=== PATIENT | female | born 1960 | race Caucasian/White ===

== ENCOUNTER 2020-03-24 11:58 | Outpatient (REF) | payer MEDICARE, OTHER, SELFPAY ==
[2020-03-24 14:25] LABS: Estimated Average Glucose 214 mg/dL; Hemoglobin A1c % 9.1 %
[2020-03-24 14:26] LABS: Alanine Aminotransferase 16 U/L (0-31); Aspartate Amino Transferase 14 U/L (5-31); Cholesterol 311 mg/dL; Glucose Fasting 203 mg/dL (60-99); HDL Cholesterol 53 mg/dL; LDL Cholesterol Calculated 233 mg/dl; Triglycerides 126 mg/dL
[2020-03-24 17:03] LABS: Creatinine Urine 33.31 mg/dL
== END 2020-03-24 11:59 | disposition home or self-care (01) ==
LOC: HO.HMGCLDS 11:58
PROVIDERS: PCP Family Medicine; Visit Provider Family Medicine
DX: E11.9 Type 2 diabetes mellitus without complications (principal); E78.00 Pure hypercholesterolemia, unspecified; Z79.899 Other long term (current) drug therapy
CPT/HCPCS: 36415; 80061; 82043; 82550; 82947; 83036; 84450; 84460

== ENCOUNTER 2020-05-19 07:53 | Outpatient (REF) | payer MEDICARE, OTHER, SELFPAY ==
[2020-05-19 11:33] LABS: Estimated Average Glucose 200 mg/dL; Hemoglobin A1c % 8.6 %
[2020-05-19 12:32] LABS: Cholesterol 298 mg/dL; Glucose Fasting 185 mg/dL (60-99); HDL Cholesterol 50 mg/dL; LDL Cholesterol Calculated 221 mg/dl; Triglycerides 136 mg/dL
== END 2020-05-19 07:54 | disposition home or self-care (01) ==
LOC: HO.HMGCLDS 07:53
PROVIDERS: PCP Internal Medicine; Visit Provider Internal Medicine
DX: E78.00 Pure hypercholesterolemia, unspecified (principal); E11.9 Type 2 diabetes mellitus without complications
CPT/HCPCS: 36415; 80061; 82947; 83036

== ENCOUNTER 2021-01-22 10:54 | Outpatient (REF) | payer MEDICARE, OTHER, SELFPAY ==
[2021-01-22 13:09] LABS: MANUAL DIFF FLAG NO
[2021-01-22 13:17] LABS: Estimated Average Glucose 206 mg/dL; Hemoglobin A1c % 8.8 %
[2021-01-22 13:21] LABS: Alanine Aminotransferase 13 U/L (0-31); Anion Gap 12 (12-20); Aspartate Amino Transferase 10 U/L (5-31); Blood Urea Nitrogen 7 mg/dL (9-16); Carbon Dioxide 30 mmol/L (22-29); Chloride 102 mmol/L (96-108); Cholesterol 316 mg/dL; Estimated Glomerular Filt Rate > 60; Glucose Fasting 176 mg/dL (60-99); HDL Cholesterol 53 mg/dL; LDL Cholesterol Calculated 239 mg/dl; Potassium 4.3 mmol/L (3.3-5.1); Sodium 140 mmol/L (135-145); Triglycerides 124 mg/dL
[2021-01-22 13:23] LABS: Basophils Percent Auto 0.4 % (0-2); Eosinophils Absolute Auto 0.2 X10*3/uL (0.0-0.4); Eosinophils Percent Auto 1.5 % (0-4); Hematocrit 43.6 % (37.0-47.0); Hemoglobin 14.5 g/dl (12.0-16.0); Imm Gran Abs Auto 0.07 X10*3/uL (0.00-0.03); Imm Gran Pct Auto 0.7 % (0.0-0.4); Lymphocytes Absolute Auto 2.6 X10*3/uL (1.2-4.9); Lymphocytes Percent Auto 24.1 % (20-40); Mean Corpuscular HGB Conc 33.3 g/dl (31.0-35.0); Mean Corpuscular Hemoglobin 30.5 pg (27.0-33.0); Mean Corpuscular Volume 91.8 fL (80.0-98.0); Monocytes Absolute Auto 0.8 X10*3/uL (0.1-1.2); Monocytes Percent Auto 7.8 % (2-11); Neutrophils Percent Auto 65.5 % (45-73); Platelet Count 367 X10*3/uL (160-400); Red Blood Count 4.75 X10*6/uL (4.20-5.50); Red Cell Distribution Width 12.8 % (11.0-16.0); White Blood Count 10.7 X10*3/uL (4.8-10.8)
== END 2021-01-22 10:55 | disposition home or self-care (01) ==
LOC: HO.HMGCLDS 10:54
PROVIDERS: Visit Provider Family Medicine
DX: E78.00 Pure hypercholesterolemia, unspecified (principal); E11.9 Type 2 diabetes mellitus without complications; D64.9 Anemia, unspecified; I10 Essential (primary) hypertension; Z79.899 Other long term (current) drug therapy
CPT/HCPCS: 36415; 80051; 80061; 82550; 82565; 82947; 83036; 84450; 84460; 84520; 85025

== ENCOUNTER 2021-08-12 13:07 | Outpatient (REF) | payer MEDICARE, OTHER, SELFPAY ==
--- NOTE | ~2021-08-12 | MR_ITS ---
EXAMINATION: MR BRAIN AND CERVICAL SPINE WITHOUT CONTRAST CLINICAL INFORMATION: Repeat. Reassess for disease progression. COMPARISON: Brain and cervical spine MRI 07/30/2019. TECHNIQUE: Multiplanar multisequence MRI of the brain and cervical spine was performed without contrast. FINDINGS: Brain: There is redemonstration of patchy and partly confluent demyelinating plaques involving the periventricular, deep, and juxtacortical cerebral white matter. The appearance is stable compared with 07/30/2019. No new plaques are seen. No definite plaques are seen within the posterior fossa structures. There is no acute infarct, hemorrhage, mass, or extra-axial fluid collection. The ventricles are normal in size and configuration without evidence of hydrocephalus. The orbital contents appear normal. Cervical spine: Demyelinating plaques are again demonstrated in the left lateral cord at C2-C3 and centrally at T2. No definite new demyelinating plaques are seen. There is mild cord volume loss/myelomalacia associated with the T2 plaque. There is no evidence of cord expansion. The cervical vertebral bodies maintain normal heights and alignment. There is mild disc height loss at C5-C6 and C6-C7. No bone marrow edema is seen. C2-C3 and C3-C4: No spinal canal or neural foraminal stenosis. C4-C5: Disc bulging with uncovertebral hypertrophy resulting in mild right neural foraminal stenosis. No spinal canal stenosis. C5-C6: Disc osteophyte complex with uncovertebral hypertrophy resulting in mild spinal canal stenosis and mild right more than left neural foraminal stenosis. C6-C7: Disc osteophyte complex asymmetric to the left with uncovertebral hypertrophy resulting in moderate spinal canal stenosis with ventral cord flattening and moderate left and mild right neural foraminal stenosis. C7-T1: No spinal canal or neural foraminal stenosis. MR/MR cervical spine wo con IMPRESSION: Brain: Stable appearance of mild supratentorial demyelinating plaques. No evidence of disease progression. No acute intracranial abnormality. Cervical spine: Redemonstration of demyelinating plaques at the C2-C3 and T2 levels. No evidence of new plaques. Stable multilevel degenerative spondylosis most advanced at C6-C7 where there is moderate spinal canal stenosis and moderate left neural foraminal stenosis.
== END 2021-08-12 13:08 | disposition home or self-care (01) ==
LOC: HO.MRI 13:07
PROVIDERS: Visit Provider Physician Assistant
DX: G35 Multiple sclerosis (principal)
CPT/HCPCS: 70551; 72141

== ENCOUNTER 2021-12-12 13:15 | Outpatient (REF) | payer MEDICARE, OTHER, SELFPAY ==
--- NOTE | ~2021-12-12 | MR_ITS ---
EXAMINATION: MR THORACIC SPINE WITHOUT AND WITH CONTRAST CLINICAL INFORMATION: Multiple sclerosis. Gait difficulty. COMPARISON: Thoracic spine MRI 03/04/2015. TECHNIQUE: Multiplanar MR imaging of the thoracic spine was performed without and with contrast. A total of 6 mL Gadavist was utilized for this examination. FINDINGS: Alignment is normal. Vertebral body heights are preserved. No acute bone marrow signal changes. There is disc desiccation at multiple levels without substantial loss of intervertebral disc height. Annular contours are normal and there is no canal or neuroforaminal compromise. No cord compression. Questionable intramedullary signal changes involving the dorsal thoracic cord at the level of T2 and the central to the dorsal cord at the level of T9. No abnormal intramedullary enhancement is associated on postcontrast imaging. Limited visualization of intrathoracic anatomy reveals no abnormal finding. Specifically no paraspinal soft tissue mass or collection. MR/MR thoracic spine wo/w con IMPRESSION: There are a few questionable intramedullary lesions involving the thoracic cord at the levels of T2 and T9 with no associated pathological enhancement or midline shift enhancement demonstrated on postcontrast imaging. Otherwise unremarkable thoracic spine MRI. No canal compromise or cord compression.
== END 2021-12-12 13:16 | disposition home or self-care (01) ==
LOC: HO.MRI 13:15
PROVIDERS: Visit Provider Physician Assistant
DX: G35 Multiple sclerosis (principal)
CPT/HCPCS: 72157; A9585

== ENCOUNTER 2022-09-29 13:41 | Outpatient (REF) | payer MEDICARE, OTHER, SELFPAY ==
--- NOTE | ~2022-09-29 | MR_ITS ---
EXAMINATION: MR BRAIN WITHOUT AND WITH CONTRAST CLINICAL INFORMATION: Follow up MS. COMPARISON: 08/12/2021 MRI. TECHNIQUE: Multiplanar, multisequence MRI of the brain was obtained before and after the intravenous administration of 6 mL Gadavist. FINDINGS: Brain Volume: Within normal limits within the limitations of qualitative assessment, stable in appearance. 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 Brain and Meninges: DWI sequence demonstrates no restricted diffusion to suggest acute or subacute cerebral ischemia or active demyelination. Redemonstrated are numerous foci of patchy and small more well-defined the zones of FLAIR/T2 signal hyperintensity in the subcortical and deeper periventricular white matter of both cerebral hemispheres, largely stable in appearance in the overall distribution and appearance. There is a stable juxta ventricular region in the right anterior temporal lobe, unchanged. Following contrast administration, there is no abnormal enhancement to suggest active demyelination. The lesion in the anterior right temporal lobe white matter is T1 hypointense, consistent with chronic demyelination, unchanged. No extra-axial fluid collections, intracranial mass lesions or pathologic intracranial enhancement are identified. Ventricles and Subarachnoid Spaces: The ventricular system and subarachnoid spaces are within normal range; there is no hydrocephalus. Orbital Structures: The visualized orbital structures are grossly unremarkable within the limitations of the study. Vascular: Signal voids are noted in the visualized major intracranial vessels. Osseous Structures, Sinuses/Mastoids, Extracranial Soft Tissues: Unremarkable MR/MR head/brain wo/w con IMPRESSION: 1. Stable nonenhancing white matter lesions in both cerebral hemispheres, with a stable lesion in the anterior right temporal lobe white matter, consistent with chronic demyelination. No abnormal enhancement to suggest active demyelination and no definite new lesions are seen. 2. 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 3. No acute intracranial process.
[2022-09-29] MEDS: gadobutroL 7.5 ML VIAL IVPUSH (14:40)
== END 2022-09-29 13:42 | disposition home or self-care (01) ==
LOC: HO.MRI 13:41
PROVIDERS: PCP Family Medicine; Visit Provider Student in an Organized Health Care Education/Training Program
DX: G35 Multiple sclerosis (principal)
CPT/HCPCS: 70553; A9585

== ENCOUNTER 2022-12-25 12:00 | Outpatient (REF) | payer MEDICARE, OTHER, SELFPAY ==
[2022-12-25 13:13] LABS: MANUAL DIFF FLAG NO
[2022-12-25 13:27] LABS: Basophils Absolute Auto 0.1 X10*3/uL (0.0-0.2); Basophils Percent Auto 0.5 % (0-2); Eosinophils Absolute Auto 0.1 X10*3/uL (0.0-0.4); Eosinophils Percent Auto 1.1 % (0-4); Hematocrit 41.8 % (37.0-47.0); Hemoglobin 13.8 g/dl (12.0-16.0); Imm Gran Abs Auto 0.06 X10*3/uL (0.00-0.03); Imm Gran Pct Auto 0.6 % (0.0-0.4); Lymphocytes Absolute Auto 3.2 X10*3/uL (1.2-4.9); Lymphocytes Percent Auto 30.3 % (20-40); Mean Corpuscular Hemoglobin 30.2 pg (27.0-33.0); Mean Corpuscular Volume 91.5 fL (80.0-98.0); Mean Platelet Volume 9.8 fL (9.4-12.3); Monocytes Absolute Auto 0.9 X10*3/uL (0.1-1.2); Monocytes Percent Auto 8.8 % (2-11); Neutrophils Absolute Auto 6.1 x10*3/uL (2.0-8.3); Neutrophils Percent Auto 58.7 % (45-73); Platelet Count 331 X10*3/uL (160-400); Red Blood Count 4.57 X10*6/uL (4.20-5.50); Red Cell Distribution Width 13.2 % (11.0-16.0); White Blood Count 10.5 X10*3/uL (4.8-10.8)
[2022-12-25 13:42] LABS: Estimated Average Glucose 134 mg/dL; Hemoglobin A1c % 6.3 % (<6.0)
[2022-12-25 14:38] LABS: Cholesterol 195 mg/dL (<200); Estimated Glomerular Filt Rate > 60; Free T4 (Free Thyroxine) 0.87 ng/dL (0.71-1.85); Glucose Fasting 111 mg/dL (60-99); HDL Cholesterol 63 mg/dL (>40); LDL Cholesterol Calculated 115 mg/dL (<100); Triglycerides 89 mg/dL (<150); Vitamin D 25-OH Total 46.3 ng/mL (>30)
== END 2022-12-25 12:01 | disposition home or self-care (01) ==
LOC: HO.HMGCLDS 12:00
PROVIDERS: PCP Family Medicine; Visit Provider Family Medicine
DX: E78.00 Pure hypercholesterolemia, unspecified (principal); E11.9 Type 2 diabetes mellitus without complications; G62.9 Polyneuropathy, unspecified; R00.0 Tachycardia, unspecified; M81.0 Age-related osteoporosis without current pathological fracture
CPT/HCPCS: 36415; 80061; 82306; 82565; 82947; 83036; 84439; 85025

== ENCOUNTER 2023-03-23 10:56 | Outpatient (AMB) | payer MEDICARE, OTHER, SELFPAY ==
--- NOTE | 2023-03-23 09:34 | MHC.OFFVIS ---
Intake Intake Visit Reasons: LDCT SD HPI HPI Comments History of Present Illness Details Natasha is a pleasant 63 year old female, current smoker with a 21 PYH. Patient has been smoking since age 21 for 42 years at 1/2 ppd. Denies marijuana use. Denies exposure to chemicals or substances like asbestos. Denies second hand smoke exposure. Denies known family history of lung cancer. Reports h/o left breast cancer s/p lumpectomy, chemo/radiation [address] in last year. Denies recent travel outside the [place]. Admits testing positive for COVID. Admits receiving COVID Vaccine x 2 Denies fever, chills, chest pain, new cough, hemoptysis or unintentional weight loss. Lung Cancer Screening Questionnaire reviewed with patient by provider. Shared Decision Making Completed. Discussed in detail with patient, the risk versus benefit of LDCT screening. Patient in agreement of proceeding with scan. Assessment & Plan Assessment & Plan (1) Nicotine dependence, cigarettes, uncomplicated: Code(s): F17.210 - Nicotine dependence, cigarettes, uncomplicated Plan Shared decision-making visit completed today in office. This patient meets criteria for LDCT for lung cancer screening purposes and is asymptomatic. Offered smoking cessation. Patient has been scheduled for a low dose chest CT for screening purposes at [facility]. We discussed how the results will be obtained depending on CT findings. RADS 1 and RADS 2 will receive a letter with results and will follow up for annual LDCT. Patient informed they will be contacted at later date to schedule upcoming LDCT scan. RADS 3 and RADS 4 will receive a telephone call, or an office visit after reviewing case at our Lung Cancer Conference to determine when the next LDCT will be scheduled or further interventions that may be needed. Discussed importance of screening program and compliance with yearly LDCT scan as scheduled. Risks, benefits, and alternatives were discussed in detail and patient agrees to proceed. Risks discussed include but are not limited to: radiation exposure and possibility of additional intervention for benign disease. Benefits include detection of lung cancer at an early stage. A copy of today's visit and LDCT results will be sent to patient's PCP. Incidental findings on LDCT are PCP's responsibility. If there are incidental findings, our office will ensure that PCP office is aware of these findings. All questions were answered and patient is in agreement of plan. Coding Level of Care Code Lung Cancer Screening G0296 Diagnoses Nicotine dependence, cigarettes, uncomplicated F17.210
== END 2023-03-23 15:08 | disposition home or self-care (01) ==
PROVIDERS: PCP Family Medicine; Referring Provider Family Medicine; Visit Provider Nurse Practitioner Family
DX: F17.210 Nicotine dependence, cigarettes, uncomplicated (principal)
CPT/HCPCS: G0296

== ENCOUNTER 2023-03-23 11:19 | Outpatient (REF) | payer MEDICARE, OTHER, SELFPAY ==
--- NOTE | ~2023-03-23 | CT_ITS ---
EXAMINATION: CT CHEST SCREENING CLINICAL INFORMATION: Current smoker, 1 pack per day, 42 pack years. COMPARISON: Chest radiograph 11/21/2012. TECHNIQUE: Multidetector volumetric CT imaging of the chest is performed without contrast using low dose technique. Additional 2D coronal and sagittal reformatted images and axial 3D maximum intensity projection (MIP) images are generated on the CT workstation. This CT examination was performed using dose optimization techniques as appropriate, variously including the following: *Automated exposure control *Adjustment of mA and/or kV according to patient size (this includes techniques or standardized protocols for targeted exams where dose is matched to indication/reason for exam; i.e. extremities or head) *Use of iterative reconstruction technique DLP: 44 mGy-cm FINDINGS: LUNGS: Mild emphysematous changes are seen. Few scattered micronodules are present, none larger than 3 mm (see malone images). The lungs are otherwise clear with no evidence of inflammation or worrisome nodules. MEDIASTINUM: The mediastinum is normal. CORONARY ARTERY CALCIFICATION: None visualized on this study. PLEURA: There is no pleural effusion. No pleural mass or thickening. AXILLA: No lymphadenopathy. UPPER ABDOMEN: Unremarkable. OSSEOUS STRUCTURES: Unremarkable. CT/CT lung screening IMPRESSION: Unremarkable examination. ASSESSMENT: Lung-RADS category 2: Benign. RECOMMENDATION: Routine annual low-dose CT screening in 12 months.
== END 2023-03-23 11:20 | disposition home or self-care (01) ==
LOC: HO.CT 11:19
PROVIDERS: PCP Family Medicine; Visit Provider Nurse Practitioner Family
DX: F17.210 Nicotine dependence, cigarettes, uncomplicated (principal)
CPT/HCPCS: 71271; G0296

== ENCOUNTER 2023-10-02 10:26 | Outpatient (REF) | payer MEDICARE, OTHER, SELFPAY ==
--- NOTE | ~2023-10-02 | MR_ITS ---
EXAMINATION: MR CERVICAL SPINE WITHOUT CONTRAST CLINICAL INFORMATION: MS, follow-up examination. 63-year-old female. COMPARISON: MRI cervical spine 02/28/2019. TECHNIQUE: MRI of the cervical spine was obtained using standard sequences without IV gadolinium. Examination was performed on the new [facility] [place] [place] 1.5 Sakina Siemens unit. Please note, due to [facility] contractual, systems, and staffing issues, an [facility] [place] [place] radiologist was not available for review and dictation of this case until 10/19/2023. FINDINGS: -Demyelinating plaques are again seen within the cervical cord and left lateral column at C2-3 (series 8, image 5), and centrally spanning the T2 vertebral body with mild associated cord thinning. These findings are both stable. -There is a central posterior column lesion at the mid C3 vertebral body, likely not previously resolved due to current markedly improved magna and spatial resolution. (series 8, image 7). -Holocord lesion present at the mid C4 level (series 8, image 11), likely also not previously resolved. -Right lateral column lesion seen superior endplate of C7 (series 8, image 22), likely also not previously resolved. -Holocord lesion present at the inferior endplate of C7 (series 8, image 25), ), and also at the superior endplate of T1 (series 8, image 27) both likely also not previously resolved. -Subtle lesion seen in the central cord at the superior endplate of C5, not definitely appreciated previously, likely due to improved magnet and improved spatial resolution. -In addition, a left mid pontine lesion is present, not definitively seen previously and not well appreciated on the concurrent brain MRI. In retrospect this was likely present on the prior exam although less conspicuous due to technical differences. -No bone marrow edema is evident. No paraspinous or paravertebral edema or soft tissue abnormality. AXIAL DISC SPACE IMAGING: At C4-5, there is a small central disc protrusion present without significant central canal narrowing. Minimal facet degeneration. Mild right foraminal stenosis. No change. At C5-6, there is a diffuse disc osteophytic ridge complex with bilateral uncinate hypertrophy, resulting in mild central canal stenosis and moderate to severe bilateral neural foraminal stenosis. Minimal facet degeneration. Normal foraminal stenosis appears mildly worsened. At C6-7 there is a shallow diffuse disc bulge with a superimposed left paracentral and lateral protrusion of disc material, which contacts and minimally indents upon the left ventral aspect of the cord, resulting in moderate central canal stenosis and left lateral recess stenosis. There is a thin sliver of CSF preserved posterior to the cord. No cord signal abnormality at the disc level. There is mild left greater than right neural foraminal narrowing. There is mild facet degeneration. No change. At C7-T1, and T1-T4, no central canal or neural foraminal narrowing is present at these levels. MR/MR cervical spine wo con IMPRESSION: 1. Aside from mild worsening of neural foraminal stenosis at C5-6, no change in the spondylosis of the cervical spine, with disc herniation resulting in indentation on the left ventral aspect of the cord at C6-7. 2. There are several demyelinating lesions within the cord not previously seen, which is more likely artifact or from far improved spatial resolution from improved MRI magnet, then true new cord lesions. Stable mild cord thinning spanning the T2 vertebral body. 3. Left mid pontine T2 hyperintense small lesion is present, not definitively previously seen, and not definitively seen on the brain MRI of same day. This could potentially be artifact. Electronically signed by: Jimbo Rivera MD 10/19/2023 06:02 PM EDT
--- NOTE | ~2023-10-02 | MR_ITS ---
EXAMINATION: MR BRAIN WITHOUT CONTRAST CLINICAL INFORMATION: MS, follow-up COMPARISON: 09/29/2022. 12/12/2021 MRI brain. Please note, due to [facility] contractual, systems, and staffing issues, an [facility] radiologist was not available for review and dictation of this case until 10/19/2023. TECHNIQUE: MRI of the brain was obtained using routine sequences without IV gadolinium. FINDINGS: -There is no diffusion restriction identified. There is no evidence of intracranial hemorrhage, acute infarction, mass effect, edema, or extra-axial fluid collection. There is no midline shift. -Ventricles, sulci, and cisterns are normal in size configuration for patient age. There is a cavum vergae. -Mild callosal thinning is present with diffuse hyperintensity at the callosal septal interface, similar to the prior exam. -Numerous punctate and minimally confluent predominantly periventricular as well as subcortical and hemispheric deep white matter T2 hyperintense foci are present, in keeping with the known diagnosis of multiple sclerosis. There are pericallosal lesions and a few pericallosal marginal lesions. There are greater than 20 punctate lesions. There are no infratentorial or brainstem lesions. -Overall, when compared with the most recent prior examination one year prior, no significant progression of disease allowing for noncontrast examination. No definite new lesions are appreciated. -Largest lesion is in the superior right periatrial white matter, unchanged, measuring an estimated 1.1 x 1.6 cm in axial plane. -Lesion in the right anterior temporal lobe is again noted to be T1 hypointense, consistent with a chronic lesion. This is unchanged. -Major flow voids are preserved within the skull base. -Midline structures are normal in appearance otherwise, with normal pituitary and normally located cerebellar tonsils. -8 mm pineal cyst is stable and unchanged when measured similarly. -Globes, orbital contents, and optic nerve sheath complexes are normal in signal and appearance. -Paranasal sinuses, mastoids, and tympanic cavities are aerated normally. -There is no extracranial soft tissue abnormality. -There are no suspicious bone marrow signal foci. MR/MR head/brain wo con IMPRESSION: -No evidence of acute intracranial hemorrhage, acute infarction, mass effect, or edema. -Stable findings of demyelinating disease without significant change or new lesions when compared with 09/29/2022. -Stable 8 mm pineal cyst, consistent with benign entity. Electronically signed by: Jimbo Rivera MD 10/19/2023 05:37 PM EDT RP
== END 2023-10-02 10:27 | disposition home or self-care (01) ==
LOC: HO.MRI 10:26
PROVIDERS: PCP Family Medicine; Visit Provider Physician Assistant
DX: G35 Multiple sclerosis (principal)
CPT/HCPCS: 70551; 72141

== ENCOUNTER → 2023-10-02 10:55 | Outpatient (BNV) | payer MEDICARE, OTHER, SELFPAY | PROVIDERS: PCP Family Medicine; Visit Provider Radiology Diagnostic Radiology | DX: G35 Multiple sclerosis (principal) | CPT/HCPCS: 70551; 72141 ==

== ENCOUNTER 2024-04-07 09:52 | Outpatient (REF) | payer MEDICARE, OTHER, SELFPAY ==
--- OUTSIDE RECORDS SUMMARY | 2024-04-07 11:06 | XMS_ITS ---
Author Name [facility] Organization Unknown History of Medication Use Medication Directions Dispensed Refills Start Date End Date Stat us ciprofloxacin (CIPRO) 500 mg tablet Take by mouth 2 (two) times a day. active escitalopram (LEXAPRO) 20 mg tablet Take 1 tablet (20 mg total) by mouth daily. 05/05/2019 active atorvastatin (LIPITOR) 40 mg tablet Take 1 tablet (40 mg total) by mouth daily. 05/05/2019 active glatiramer (Copaxone) 40 mg/mL injection INJECT 1 ML (40 MG TOTAL) UNDER THE SKIN THREE TIMES A WEEK 03/15/2022 active cyanocobalamin (VITAMIN B-12) 1,000 mcg tablet TAKE 1 TABLET BY MOUTH EVERY DAY 11/21/2022 active Problems Problem Status Onset Date Problem Type Date of Resoluti on Source Depression active 2019-07-19 Problem[address] [facility] RAN DM (diabetes mellitus) active 2019-07-19 ProblemAct [facility] HLD (hyperlipidemia) active 2019-07-19 ProblemAct [facility]
--- OUTSIDE RECORDS SUMMARY | 2024-04-07 11:07 | XMS_ITS | Clinical Summary ---
Author Organization 175 [facility] Address [address] [place] [phone] Phone Care Team Providers Care Dean Of Faculty Name Role Phone Abel Severino MD Primary Care Provider [phone] Allergies Active Allergy Reactions Criticality Noted Date Comments Aspirin Nausea And Vomiting 06/23/2014 Bupropion Palpitations Low 06/23/2014 Codeine Nausea And Vomiting 06/23/2014 Erythromycin 08/01/2023 Penicillins Nausea And Vomiting 06/23/2014 Medications atorvastatin (LIPITOR) 40 mg tablet Take 1 tablet (40 mg total) by mouth daily. 0 Active cholecalciferol (VITAMIN D-3) 125 mcg (5,000 unit) capsule Take by mouth. Active cyanocobalamin (VITAMIN B-12) 1,000 mcg tablet TAKE 1 TABLET BY MOUTH EVERY DAY 3 Active ergocalciferol (VITAMIN D-2) 1,250 mcg (50,000 unit) capsule Take 1 capsule (50,000 Units total) by mouth once a week. 3 Active escitalopram (LEXAPRO) 20 mg tablet Take 1 tablet (20 mg total) by mouth daily. 0 Active glatiramer (Copaxone) 40 mg/mL injection INJECT 1 ML (40 MG TOTAL) UNDER THE SKIN THREE TIMES A WEEK 3 Active meclizine (ANTIVERT) 25 mg tablet 1/2 - 1 po up to bid PRN vertigo 2 Active metFORMIN XR (GLUCOPHAGE-XR) 500 mg 24 hr tablet Take 1 tablet (500 mg total) by mouth every night at bedtime. 0 Active Copaxone 40 mg/mL injectionIndica tions:MS (multiple sclerosis) ([facility]) Inject 1 mL (40 mg total) under the skin 3 (three) times a week. 12 mL 5 03/31/2024 1:50 PM EST 4 Active amphetamine-dex troamphetamine (ADDERALL) 20 mg tablet Take 1 tablet (20 mg total) by mouth 2 (two) times a day. Max Daily Amount: 40 mg 60 each 5 04/27/19 25 Active amphetamine-dex troamphetamine (ADDERALL) 20 mg tablet Take 1 tablet (20 mg total) by mouth 2 (two) times a day. Max Daily Amount: 40 mg 60 each 5 03/27/19 25 Discontinu ed(Reorder ) Active Problems Problem Noted Date Diagnosed Date Depression 07/19/2019 DM (diabetes mellitus) 07/19/2019 HLD (hyperlipidemia) 07/19/2019 Encounters Date Type Department Care Team Description 01/14/2024 1:00 PM EST Office Visit [phone] Shannon Kay PA MS (multiple sclerosis) ([facility]) (Primary Dx) from Last 3 Months Surgical History Surgery Date Site/Laterality Comments TOTAL HIP ARTHROPLASTY Left PROCEDURE:REPLACEMENT TOTAL HIP W/ RESURFACING IMPLANTS TONSILLECTOMY PROCEDURE:TONSILLECTOMY HYSTERECTOMY PROCEDURE:HYSTERECTOMY BREAST LUMPECTOMY Left PROCEDURE:BREAST LUMPECTOMY Medical History Medical History Date Comments MS (multiple sclerosis) (CMS/HCC) DX:MS (multiple sclerosis) ([facility]) Breast cancer ([facility]) DX:Breas t cancer ([facility]) Family History Medical History Relation Name Comments Heart disease Father Hypertension Father Breast cancer Maternal Grandmother Hypertension Mother Breast cancer Paternal Grandmother Multiple sclerosis Neg Hx Relation Name Status Comments Father Maternal Grandmother Mother Paternal Grandmother Social History Tobacco Use Types Packs/Day Years Used Date Smoking Tobacco: Every Day Smokeless Tobacco: Never Tobacco Cessation:Ready to Q uit: Not Asked; Counseling Given: Not Answered Alcohol Use Standard Drinks/Week Comments Yes 0 (1 standard drink = 0.6 oz pur e alcohol) Comments Unknown Sex and Gender Information Value Date Recorded Sex Assigned at Not on file Legal Sex Female 11:10 PM EST Gender Identity Not on file Sexual Orientation Not on file Obstetrics History Last Filed Vital Signs Vital Sign Reading Time Taken Comments Blood Pressure 119/70 01/14/2024 1:22 PM EST Pulse 94 01/14/2024 1:22 PM EST Temperature 36 ??C (96.8 ??F) 01/14/2024 1:22 PM EST Respiratory Rate - - Oxygen Saturation 98% 01/14/2024 1:22 PM EST Inhaled Oxygen Concentration - - Weight 64.9 kg (143 lb) 01/14/2024 1:22 PM EST Height 175.3 cm (5' 9 ) 01/14/2024 1:22 PM EST Body Mass Index 21.12 01/14/2024 1:22 PM EST Plan of Treatment Upcoming Encounters Date Type Department Care Team (Late st Contact Info) Description 07/14/2024 1:00 PM EDT Office Visit [facility] [address] [facility] [address] [phone] Dell Obregon MD [address] [facility] [address] [phone] Health Maintenance Due Date Last Done Comments Breast Cancer Screening 1961 Diabetes: Annual GFR (Glomerular Filtration Rate) 1961 Diabetes: Annual Foot Exam 1971 Diabetes: Annual Retina Eye Exam 1971 DTaP,Tdap,and Td Vaccines (1 - Tdap) 02/10/1980 Pneumococcal Vaccine: 50+ Years (1 of 2 - PCV) 02/10/1980 Pneumococcal Vaccine: Pediatrics (0 to 5 Years) and At-Risk Patients (6 to 64 Years) (1 of 2 - PCV) 02/10/1980 Zoster Vaccines (1 of 2) 02/10/1980 Cervical Cancer Screening: P ap Smear 1982 COVID-19 Vaccine (3 - Pfizer risk series) 06/23/2020 05/26/2020, 05/03/2020 Cholesterol Screening (Lipid Panel) 01/14/2022 Colorectal Cancer Screening: Colonoscopy 01/14/2022 Depression Screening 01/14/2022 HIV Screening 01/14/2022 Hepatitis C Screening 01/14/2022 Social Influencers of Health Screening 01/14/2022 Diabetes: Annual Urine Albumin-Creatinine Ratio (uACR) 02/03/2022 Diabetes: Blood Sugar Contro l Test (HGBA1C) 02/03/2022 Medicare Annual Wellness Visit 10/03/2023 10/02/2022 Influenza Vaccine (#1) 2023 4, 12/15/2012 RSV Immunization Patients 60 + Years Old (1 - 1-dose 75+ series) 02/10/2036 HIB Vaccines Aged Out No longer eligi ble based on patient's age to complete this topic HPV Vaccines Aged Out No longer eligi ble based on patient's age to complete this topic Hepatitis A Vaccines Aged Out No long er eligible based on patient's age to complete this topic Hepatitis B Vaccines Aged Out No long er eligible based on patient's age to complete this topic IPV Vaccines Aged Out No longer eligi ble based on patient's age to complete this topic MMR Vaccines Aged Out No longer eligi ble based on patient's age to complete this topic Meningococcal ACWY Vaccine Aged Out N o longer eligible based on patient's age to complete this topic Meningococcal B Vacine Aged Out No lo nger eligible based on patient's age to complete this topic RSV Immunization Patients Under 20 months Aged Out No longer eligible b ased on patient's age to complete this topic Varicella Vaccines Aged Out No longer eligible based on patient's age to complete this topic Procedures Procedure Name Priority Date/Time Associated Diagnosis Comments EXTERNAL MRI REPORT 02/08/2024 from Last 3 Months Results * External MRI Report (02/08/2024) Anatomical Region Laterality Modality Magnetic Resonan ce us Provider [facility] IMG MRI PROCEDURES Final Result from Last 3 Months Insurance MEDICARE [facility] Care Teams Dean Of Faculty Relationship Specialty Start Date End Date Abel Severino MD [address] [place] [address] [place] [address] PCP - General Internal Medicine 12/23/20
--- OUTSIDE RECORDS SUMMARY | 2024-04-07 11:07 | XMS_ITS | Clinical Summary ---
Author Organization [facility] Address [address] [place] [address] Care Team Providers Care Scale Balancer Name Role Phone Abel Severino MD Primary Care Provider [phone] Allergies Active Allergy Reactions Criticality Noted Date Comments Aspirin Nausea And Vomiting 06/23/2014 Bupropion Palpitations Low 06/23/2014 Codeine Nausea And Vomiting 06/23/2014 Erythromycin 01/22/2023 Penicillins Nausea And Vomiting 06/23/2014 Medications Medication Sig Dispensed Refills Start Date End Date Status atorvastatin (LIPITOR) tablet 40 mg Take 1 tablet (40 mg total) by mouth daily. 0 05/05/2019 Active escitalopram (LEXAPRO) 20 MG tablet Take 1 tablet (20 mg total) by mouth daily. 0 05/05/2019 Active metFORMIN (GLUCOPHAGE-XR) ER 24 hr tablet 500 mg Take 1 tablet (500 mg total) by mouth every night at bedtime. 0 06/18/2019 Active meclizine (ANTIVERT) 25 MG tablet 1/2 - 1 po up to bid PRN vertigo 30 tablet 1 04/21/2021 Active Copaxone 40 MG/ML SOSY injection Inject 1 mL (40 mg total) under the skin 3 (three) times a week. 12 mL 5 07/16/2023 Active meclizine (Medi-Meclizine) 25 MG tablet Take 1 tablet (25 mg total) by mouth 3 (three) times a day as needed. 30 tablet 0 07/16/2023 Active ciprofloxacin (Cipro) 500 MG tablet Take 1 tablet (500 mg total) by mouth 2 (two) times a day. 14 tablet 0 07/20/2023 Active ergocalciferol (VITAMIN D2) capsule 58061 units TAKE 1 CAPSULE BY MOUTH ONE TIME PER WEEK 12 capsule 4 08/22/2023 Active amphetamine-dextroam phetamine (ADDERALL, 20MG,) 20 MG tablet Up to 1 po bid (max 40 mg per day) 60 tablet 0 11/07/2023 Active vitamin B-12 (CYANOCOBALAMIN) tablet 1000 mcg TAKE 1 TABLET BY MOUTH EVERY DAY 90 tablet 1 11/22/2023 Active Active Problems Problem Noted Date Diagnosed Date DM (diabetes mellitus) 07/19/2019 HLD (hyperlipidemia) 07/19/2019 Depression 07/19/2019 History of breast cancer 07/19/2019 Family History Medical History Relation Name Comments [...] drink = 0.6 oz pur e alcohol) Sex and Gender Information Value Date Recorded Sex Assigned at Female 05/13/2020 10:48 AM EDT Gender Identity Not on file Sexual Orientation Not on file Job Start Date Occupation Industry Not on file Not on file Not on file Last Filed Vital Signs Vital Sign Reading Time Taken Comments Blood Pressure 136/76 07/16/2023 1:45 PM EDT Pulse 102 07/16/2023 1:45 PM EDT Temperature 36.1 ??C (97 ??F) 07/16/2023 1:45 PM EDT Respiratory Rate 16 01/01/2023 2:35 PM EST Oxygen Saturation 94% 07/16/2023 1:45 PM EDT Inhaled Oxygen Concentration - - Weight 67.6 kg (149 lb) 07/16/2023 1:45 PM EDT Height 175.3 cm (5' 9 ) 07/16/2023 1:45 PM EDT Body Mass Index 22 07/16/2023 1:45 PM EDT Plan of Treatment Health Maintenance Due Date Last Done Comments Hepatitis C Screening 1961 COVID-19 Vaccine (#1) 1961 Pneumococcal Vaccine (1 of 2 - PCV) 1967 Depression Screening 1973 Preventative Health Evaluation 1979 Tobacco Cessation Counseling 1979 DTap / Tdap / Td (1 - Tdap) 02/10/1980 Cervical Cancer Screening (P ap Smear) 1982 Colon Cancer Screening (Colonoscopy) 2006 Breast Cancer Screening (Mammogram) 2011 Shingrix-Zoster Vaccine (1 of 2) 2011 Influenza Vaccine (#1) 2023 RSV Adult > 60+ Yrs or Pregn ant (1 - 1-dose 75+ series) 02/10/2036 Hepatitis B Vaccines Aged Out No long er eligible based on patient's age to complete this topic RSV Ped < 20 months Aged Out No longe r eligible based on patient's age to complete this topic Care Teams Scale Balancer Relationship Specialty Start Date End Date Abel Severino MD [address] [place] [address] [place] [address] PCP - General Internal Medicine 07/18/19
== END 2024-04-07 09:53 | disposition home or self-care (01) ==
LOC: HO.CT 09:52
PROVIDERS: Visit Provider Physician Assistant Medical
DX: Z12.2 Encounter for screening for malignant neoplasm of respiratory organs (principal); F17.210 Nicotine dependence, cigarettes, uncomplicated
CPT/HCPCS: 71271

== ENCOUNTER → 2024-04-07 09:54 | Outpatient (BNV) | payer MEDICARE, OTHER, SELFPAY | PROVIDERS: Visit Provider Radiology Diagnostic Radiology | DX: F17.210 Nicotine dependence, cigarettes, uncomplicated (principal) | CPT/HCPCS: 71271 ==

== ENCOUNTER 2024-04-11 10:11 | Outpatient (REF) | payer MEDICARE, OTHER, SELFPAY ==
--- OUTSIDE RECORDS SUMMARY | 2024-04-11 11:27 | XMS_ITS | Clinical Summary ---
Author Organization [facility] Address [address] [place] [address] Care Team Providers Care Branch Service Representative Name Role Phone Abel Severino MD Primary Care Provider [phone] Allergies Active Allergy Reactions Criticality Noted Date [...] 0 07/20/2023 Active ergocalciferol (VITAMIN D2) capsule 41741 units TAKE 1 CAPSULE BY MOUTH ONE [...] age to complete this topic Care Teams Branch Service Representative Relationship Specialty Start Date End Date Abel Severino MD [address] [place] [address] [place] [address] PCP - General Internal Medicine 07/18/19
--- OUTSIDE RECORDS SUMMARY | 2024-04-11 11:27 | XMS_ITS | Clinical Summary ---
Author Organization 175 [facility] Address [address] [place] [phone] Phone Care Team Providers Care Color Maker Dyer Name Role Phone Abel Severino MD Primary Care Provider [phone] Allergies Active Allergy Reactions Criticality Noted Date [...] Copaxone 40 mg/mL injectionIndica tions:MS (multiple sclerosis) ([facility]) Inject 1 mL (40 mg total) under [...] Description 01/14/2024 1:00 PM EST Office Visit [address] [place] [phone] Shannon Kay PA MS (multiple sclerosis) ([facility]) (Primary Dx) from Last 3 Months Surgical History Surgery Date Site/Laterality Comments TOTAL HIP ARTHROPLASTY Left PROCEDURE:REPLACEMENT TOTAL HIP W/ RESURFACING IMPLANTS TONSILLECTOMY PROCEDURE:TONSILLECTOMY HYSTERECTOMY PROCEDURE:HYSTERECTOMY BREAST LUMPECTOMY Left PROCEDURE:BREAST LUMPECTOMY Medical History Medical History Date Comments MS (multiple sclerosis) (CMS/HCC) DX:MS (multiple sclerosis) ([facility]) Breast cancer ([facility]) DX:Breas t cancer ([facility]) Family History Medical History Relation Name Comments [...] Description 07/14/2024 1:00 PM EDT Office Visit [facility] [address] [facility] [address] [place] [address] Dell Obregon MD [address] [facility] [address] [place] [phone] Health Maintenance Due Date Last Done Comments [...] Result from Last 3 Months Insurance MEDICARE [facility] Care Teams Color Maker Dyer Relationship Specialty Start Date End Date Abel Severino MD [address] [place] [address] [place] [address] PCP - General Internal Medicine 12/23/20
[2024-04-11 13:26] LABS: MANUAL DIFF FLAG NO
[2024-04-11 13:33] LABS: Basophils Percent Auto 0.4 % (0-2); Eosinophils Absolute Auto 0.1 X10*3/uL (0.0-0.4); Eosinophils Percent Auto 1.3 % (0-4); Hematocrit 40.4 % (37.0-47.0); Hemoglobin 13.4 g/dl (12.0-16.0); Imm Gran Abs Auto 0.06 X10*3/uL (0.00-0.03); Imm Gran Pct Auto 0.6 % (0.0-0.4); Lymphocytes Absolute Auto 2.9 X10*3/uL (1.2-4.9); Lymphocytes Percent Auto 29.7 % (20-40); Mean Corpuscular HGB Conc 33.2 g/dl (31.0-35.0); Mean Corpuscular Hemoglobin 30.2 pg (27.0-33.0); Mean Platelet Volume 9.9 fL (9.4-12.3); Monocytes Absolute Auto 0.7 X10*3/uL (0.1-1.2); Monocytes Percent Auto 7.4 % (2-11); Neutrophils Absolute Auto 5.9 x10*3/uL (2.0-8.3); Neutrophils Percent Auto 60.6 % (45-73); Platelet Count 353 X10*3/uL (160-400); Red Blood Count 4.44 X10*6/uL (4.20-5.50); White Blood Count 9.7 X10*3/uL (4.8-10.8)
[2024-04-11 13:46] LABS: Estimated Average Glucose 183 mg/dL
[2024-04-11 14:05] LABS: Alanine Aminotransferase 20 U/L (0-31); Albumin Level 4.1 g/dL (3.5-5.0); Alkaline Phosphatase 68 U/L (39-117); Anion Gap 13 (12-20); Aspartate Amino Transferase 18 U/L (5-31); Bilirubin Total 0.7 mg/dL (0.0-1.0); Blood Urea Nitrogen 14 mg/dL (9-16); Calcium 9.2 mg/dL (8.4-10.2); Carbon Dioxide 26 mmol/L (22-29); Chloride 104 mmol/L (96-108); Estimated Glomerular Filt Rate > 60; Glucose Fasting 162 mg/dL (60-99); Potassium 4.2 mmol/L (3.3-5.1); Sodium 139 mmol/L (135-145); Total Protein 7.4 g/dL (6.5-8.0)
[2024-04-11 14:11] LABS: Free T4 (Free Thyroxine) 0.99 ng/dL (0.71-1.85); Thyroid Stimulating Hormone 1.02 uIU/mL (0.32-4.0)
== END 2024-04-11 10:12 | disposition home or self-care (01) ==
LOC: HO.HMGCLDS 10:11
PROVIDERS: PCP Family Medicine; Visit Provider Family Medicine
DX: E11.9 Type 2 diabetes mellitus without complications (principal); R53.83 Other fatigue; G35 Multiple sclerosis
CPT/HCPCS: 36415; 80053; 83036; 84439; 84443; 85025

== ENCOUNTER 2024-04-21 10:29 | Outpatient (REF) | payer MEDICARE, OTHER, SELFPAY ==
[2024-04-21 13:15] LABS: MANUAL DIFF FLAG NO
[2024-04-21 13:23] LABS: Basophils Percent Auto 0.3 % (0-2); Eosinophils Absolute Auto 0.1 X10*3/uL (0.0-0.4); Eosinophils Percent Auto 1.3 % (0-4); Hematocrit 40.1 % (37.0-47.0); Hemoglobin 13.5 g/dl (12.0-16.0); Imm Gran Abs Auto 0.03 X10*3/uL (0.00-0.03); Imm Gran Pct Auto 0.3 % (0.0-0.4); Lymphocytes Absolute Auto 2.9 X10*3/uL (1.2-4.9); Lymphocytes Percent Auto 31.5 % (20-40); Mean Corpuscular HGB Conc 33.7 g/dl (31.0-35.0); Mean Corpuscular Hemoglobin 30.2 pg (27.0-33.0); Mean Corpuscular Volume 89.7 fL (80.0-98.0); Mean Platelet Volume 9.7 fL (9.4-12.3); Monocytes Absolute Auto 0.8 X10*3/uL (0.1-1.2); Monocytes Percent Auto 8.7 % (2-11); Neutrophils Absolute Auto 5.2 x10*3/uL (2.0-8.3); Neutrophils Percent Auto 57.9 % (45-73); Platelet Count 346 X10*3/uL (160-400); Red Blood Count 4.47 X10*6/uL (4.20-5.50); White Blood Count 9.1 X10*3/uL (4.8-10.8)
[2024-04-21 14:28] LABS: Creatinine Urine 47.87 mg/dL; Microalbum/Creatinine Ratio Ur 12.5 ug/mg cr (<30)
== END 2024-04-21 10:30 | disposition home or self-care (01) ==
LOC: HO.HMGCLDS 10:29
PROVIDERS: PCP Family Medicine; Visit Provider Family Medicine
DX: R06.02 Shortness of breath (principal)
CPT/HCPCS: 36415; 82043; 82570; 85025

== ENCOUNTER 2024-10-10 08:37 | Outpatient (REF) | payer MEDICARE, OTHER, SELFPAY ==
--- OUTSIDE RECORDS SUMMARY | 2024-10-10 09:07 | XMS_ITS | Clinical Summary ---
Author Organization [facility] Address [address] [place] [address] Care Team Providers Care Supervisor Drying And Winding Name Role Phone Abel Severino MD Primary Care Provider [phone] Allergies Active Allergy Reactions Criticality Noted Date [...] 0 07/20/2023 Active ergocalciferol (VITAMIN D2) capsule 33362 units TAKE 1 CAPSULE BY MOUTH ONE [...] 102 07/16/2023 1:45 PM EDT Temperature 36.1 C (97 F) 07/16/2023 1:45 PM EDT Respiratory Rate 16 [...] (1 of 2) 2011 Influenza Vaccine (#1) 2024 RSV Adult > 60+ Yrs or Pregn ant (1 - 1-dose 75+ series) 02/10/2036 Hepatitis B Vaccines Aged Out No long er eligible based on patient's age to complete this topic RSV Ped < 20 months Aged Out No longe r eligible based on patient's age to complete this topic Care Teams Supervisor Drying And Winding Relationship Specialty Start Date End Date Abel Severino MD [address] [place] [address] [place] [address] PCP - General Internal Medicine 07/18/19
--- OUTSIDE RECORDS SUMMARY | 2024-10-10 09:07 | XMS_ITS ---
Author Name [facility] Organization Unknown History of Medication Use Medication Directions Dispensed Refills Start Date End Date Stat us cyanocobalamin (VITAMIN B-12) 1,000 mcg tablet TAKE 1 TABLET BY MOUTH EVERY DAY 11/21/2022 active glatiramer (Copaxone) 40 mg/mL injection INJECT 1 ML (40 MG TOTAL) UNDER THE SKIN THREE TIMES A WEEK 03/15/2022 active atorvastatin (LIPITOR) 40 mg tablet Take 1 tablet (40 mg total) by mouth daily. 05/05/2019 active escitalopram (LEXAPRO) 20 mg tablet Take 1 tablet (20 mg total) by mouth daily. 05/05/2019 active ciprofloxacin (CIPRO) 500 mg tablet Take by mouth 2 (two) times a day. active Allergies Allergen Reaction Severity Comment Documented Date Source Statu s ERYTHROMYCIN 08/01/2023 [facility] activ e PENICILLINS NAUSEA AND VOMITING 06/23/2014 [facility] active ASPIRIN NAUSEA AND VOMITING [facility] BUPROPION PALPITATIONS [facility] CODEINE NAUSEA AND VOMITING [facility] Problems Problem Status Onset Date Problem Type Date of Resoluti on Source DM (diabetes mellitus) active 2019-07-19 ProblemAct [facility] HLD (hyperlipidemia) active 2019-07-19 ProblemAct [facility] Depression active 2019-07-19 ProblemAct [facility] Care Team Organization Name Specialty Phone Email Start Date End Da te [facility] ACO 09/24/2024 [facility] Organization FLAVIO VALDERRAMA Primary Care 10/12/20222023 [facility] MARCE ESPINOSA Primary Care 07/14/2022 09/24/2023
--- OUTSIDE RECORDS SUMMARY | 2024-10-10 09:07 | XMS_ITS | Clinical Summary ---
Author Organization [facility] Address [address] [place] [address] Phone Care Team Providers Care Edge Burnisher Name Role Phone Abel Severino MD Primary Care Provider Allergies Active Allergy Reactions Criticality Noted Date Comments Aspirin Unknown 06/23/2014 Codeine Unknown 06/23/2014 Penicillins Unknown 06/23/2014 Wellbutrin (Bupropion Hcl) Unknown 5 Active Problems Problem Noted Date Diagnosed Date Malignant neoplasm of breast 06/23/2014 Overview (01/12/2015): Malignant tumor of breast Multiple sclerosis 06/23/2014 Overview (01/12/2015): Multiple sclerosis Hyperlipidemia 06/23/2014 Overview (01/12/2015): Hyperlipidemia Depression 06/23/2014 Overview (01/12/2015): Depression Social History Tobacco Use Types Packs/Day Years Used Date Smoking Tobacco: Never Assessed Comments Unknown Sex and Gender Information Value Date Recorded Sex Assigned at Not on file Legal Sex Female 8:31 AM EDT Gender Identity Not on file Sexual Orientation Not on file Last Filed Vital Signs Vital Sign Reading Time Taken Comments Blood Pressure 120/86 06/23/2014 11:49 AM EDT Pulse 87 06/23/2014 11:49 AM EDT Temperature 36.4 C (97.5 F) 06/23/2014 11:49 AM EDT Respiratory Rate 16 06/23/2014 11:49 AM EDT Oxygen Saturation - - Inhaled Oxygen Concentration - - Weight 68.9 kg (152 lb) 06/23/2014 11:49 AM EDT Height - - Body Mass Index - - Plan of Treatment Not on file Medical Devices Not on file Insurance CIGNA HMO POS CIGNA HMO POS [employer] HMO POS [employer] H[employer] POS CIG HMO [place] [address] [place] [address] HMO POS Care Teams Edge Burnisher Relationship Specialty Start Date End Date Abel Severino MD NPI: [id number] [place] [address] [place] [address] PCP - General Emergency Medicine 06/16/14 Additional Source Comments The information contained in this document represents components of the legal health record. It is not the complete legal health record.[facility]
--- OUTSIDE RECORDS SUMMARY | 2024-10-10 09:07 | XMS_ITS | Clinical Summary ---
Author Organization 175 [facility] Address [address] [place] [phone] Phone Care Team Providers Care Route Deliverer Name Role Phone Abel Severino MD Primary Care Provider [phone] Allergies Active Allergy Reactions Criticality Noted Date [...] Copaxone 40 mg/mL injectionIndica tions:MS (multiple sclerosis) ([facility] V24, [facility] V28) Inject 1 mL (40 mg total) under the skin 3 (three) times a week. 12 mL 5 09/15/2024 1:26 PM EDT 5 Active amphetamine-dex troamphetamine (ADDERALL) 20 mg tablet Take 1 tablet (20 mg total) by mouth 2 (two) times a day. Max Daily Amount: 40 mg 60 each 5 11/07/19 25 Active amphetamine-dex troamphetamine (ADDERALL) 20 mg tablet Take 1 tablet (20 mg total) by mouth 2 (two) times a day. Max Daily Amount: 40 mg 60 each 5 10/08/19 25 Discontinu ed(Reorder ) Active Problems Problem Noted Date Diagnosed Date Depression 07/19/2019 DM (diabetes mellitus) [place] [place] [facility] [place] ) 07/19/2019 HLD (hyperlipidemia) 07/19/2019 Encounters Date Type Department Care Team Description 07/24/2024 1:00 PM EDT Telemedicine [facility] [address] [place] [address] Dell Obregon MD MS (multiple sclerosis) ([facility] V24, [facility] V28) (Primary Dx); Bilateral foot-drop from Last 3 Months Surgical History Surgery Date Site/Laterality Comments TOTAL HIP ARTHROPLASTY Left PROCEDURE:REPLACEMENT TOTAL HIP W/ RESURFACING IMPLANTS TONSILLECTOMY PROCEDURE:TONSILLECTOMY HYSTERECTOMY PROCEDURE:HYSTERECTOMY BREAST LUMPECTOMY Left PROCEDURE:BREAST LUMPECTOMY Medical History Medical History Date Comments MS (multiple sclerosis) ([facility] V24, [facility] V28) DX:MS (multiple sclerosis) ( HCC) Breast cancer ([facility] V24, [facility] V28) DX:Breast cancer (HCC) Family History Medical History Relation Name Comments [...] 94 01/14/2024 1:22 PM EST Temperature 36 C (96.8 F) 01/14/2024 1:22 PM EST Respiratory Rate - - Oxygen Saturation 98% 01/14/2024 1:22 PM EST Inhaled Oxygen Concentration - - Weight 64.9 kg (143 lb) 01/14/2024 1:22 PM EST Height 175.3 cm (5' 9 ) 01/14/2024 1:22 PM EST Body Mass Index 21.12 01/14/2024 1:22 PM EST Plan of Treatment Upcoming Encounters Date Type Department Care Team (Late st Contact Info) Description 11/14/2024 11:30 AM EDT Telemedicine [address] [place] [address] Dell Obregon MD [address] [place] [phone] Health Maintenance Due Date Last Done Comments Breast Cancer Screening 1961 Diabetes: Annual GFR (Glomerular Filtration Rate) 1961 Diabetes: Annual Foot Exam 1971 Diabetes: Annual Retina Eye Exam 1971 DTaP,Tdap,and Td Vaccines (1 - Tdap) 02/10/1980 Hepatitis A Vaccines (1 of 2 - Risk 2-dose series) 02/10/1980 Pneumococcal Vaccine: 50+ Years (1 of 2 - PCV) 02/10/1980 Zoster Vaccines (1 of 2) 02/10/1980 Cervical Cancer Screening: P ap Smear 1982 COVID-19 Vaccine (3 - Pfizer risk series) 06/23/2020 05/26/2020, 05/03/2020 Hepatitis B Vaccines (1 of 3 - Risk 3-dose series) 2021 RSV Immunization Adult Patients (1 - Risk 60-74 years 1-dose series) 2021 Cholesterol Screening (Lipid Panel) 01/14/2022 Colorectal Cancer Screening: Colonoscopy 01/14/2022 HIV Screening 01/14/2022 Hepatitis C Screening 01/14/2022 Social Influencers of Health Screening 01/14/2022 Diabetes: Annual Urine Albumin-Creatinine Ratio (uACR) 02/03/2022 Diabetes: Blood Sugar Contro l Test (HGBA1C) 02/03/2022 Depression Screening 02/06/2024 Influenza Vaccine (#1) 2024 4, 12/15/2012 Medicare Annual Wellness Visit 04/17/2025 04/17/2024 HIB Vaccines Aged Out No longer eligi [...] age to complete this topic Meningococcal B Vaccine Aged Out No l onger eligible based on patient's age to complete this topic RSV Immunization Patients Under 20 months Aged Out No longer eligible b ased on patient's age to complete this topic Varicella Vaccines Aged Out No longer eligible based on patient's age to complete this topic Insurance MEDICARE [facility] Care Teams Route Deliverer Relationship Specialty Start Date End Date Abel Severino MD [address] [place] [address] [place] [address] PCP - General Internal Medicine 12/23/20
[2024-10-10 10:58] LABS: Hemoglobin A1C 195.9333 umol/L; Total Hemoglobin (HGBA1C) 3398.7718 umol/L
[2024-10-10 11:20] LABS: Alanine Aminotransferase 12 U/L (0-31); Aspartate Amino Transferase 15 U/L (5-31); Cholesterol 258 mg/dL (<200); HDL Cholesterol 48 mg/dL (>40); Triglycerides 116 mg/dL (<150)
== END 2024-10-10 08:38 | disposition home or self-care (01) ==
LOC: HO.HMGCLDS 08:37
PROVIDERS: PCP Family Medicine; Visit Provider Family Medicine
DX: E11.9 Type 2 diabetes mellitus without complications (principal); E78.5 Hyperlipidemia, unspecified
CPT/HCPCS: 36415; 80061; 82550; 82947; 83036; 84450; 84460

== ENCOUNTER 2024-10-14 10:08 | Outpatient (AMB) | payer MEDICARE, OTHER, SELFPAY ==
--- NOTE | 2024-10-14 10:11 | MHC.PC.OV ---
Vital Signs 10/14/24 10:19 Height 5 ft 9 in Weight 64.864 kg BMI 21.1 BP 126/78 Pulse 92 Pulse Source Pulse Oximeter Temp 97.6 F Temp Source Temporal Artery Scan Pulse Oximetry (%) 99 Oxygen Delivery Method Room Air Intake Visit Reasons: 3 MO F/UP - ABHINAV PT Foxer Required: No Accompanied by: Self / Same As Patient Allergies Penicillins Allergy (Mild, Verified 10/14/24 10:16) hives aspirin Adverse Reaction (Mild, Verified 10/14/24 10:16) Vomiting sodium pen Adverse Reaction (Mild, Uncoded 10/14/24 10:16) Hives Medication List - Last Reconciled 10/14/24 by ELDER Goldsmith atorvastatin (Lipitor) 40 mg PO DAILY cyanocobalamin (vitamin B-12) 1,000 mcg PO DAILY dextroamphetamine-amphetamine 20 mg 1 tab PO BID ergocalciferol (vitamin D2) 1,250 mcg PO QWEEK escitalopram oxalate 20 mg PO QAM glatiramer (Copaxone) mg subcut 3XW metformin 500 mg PO DAILY Tobacco use date assessed: 10/14/24 Dental Screening Dental Screen Date: 10/14/24 Did you have a dental visit in the last 12 months?: Yes Did you have a dental problem in the last 6 months where you did not have access to dental care?: No Was dental information given to patient?: No HPI HPI Comments History of Present Illness Details 64-year-old female with history of depression/anxiety, diabetes, hyperlipidemia, and multiple sclerosis presenting to the office for management of chronic conditions and to establish care. Type 2 diabetes-not checking glucose levels at home. Last A1c 7.4%. Due for updated A1c. Compliant with metformin. Compliant with diabetic diet. Follows annually for eye exams with Dr. Russell Hyperlipidemia-last LDL 179, reports compliance with atorvastatin 40 mg daily. [facility] Copax[facility]. Has long history of diarrhea which then transitioned to constipation and over this summer completely resolved. However 2 weeks ago began experiencing significant constipation. Bffe-ubk-jsqmnep stool softeners, osmotic laxatives and fiber supplements have not helped. She does take Dulcolax as needed which is effective but does not want to take this regularly. She does follow a healthy diet. Depression/anxiety/ADD-previously following with Psychiatry, PCP has taken over management of medications. Stable on escitalopram and Adderall History left breast cancer-continue swelling with a deal more Center. Annual mammograms. Underwent left lumpectomy, chemotherapy, radiation Concerns: As above Health maintenance: Last colonoscopy, over 10 years ago. Has had 2 Cologuard studies, most recent 3 years ago which was negative. Last Pap-s/p total hysterectomy Last mammogram-overdue Last DEXA gvbn[facility]fq-xs-date-[facility] ROS: General: No fevers, malaise, unintentional weight loss HEENT: No blurred vision, diplopia. No sore throat, nasal congestion, rhinorrhea, sinus pain, ear pain Cardiovascular: No chest pain, palpitations, or leg edema Respiratory: No shortness of breath, wheezing, cough GI: See HPI : No dysuria, hematuria, increased urinary frequency, decreased urinary output MSK: No myalgia, back pain Neuro: No headaches, weakness, paresthesias Skin: No rashes or lesions EXAM: Constitutional - Awake and Alert, No apparent distress Eyes - PERRL Cardiovascular - S1S2, RRR, No edema Respiratory - Normal lung expansion, Normal respiratory effort, No respiratory distress, CTA bilaterally Extremities - no calf tenderness bilaterally, no swelling Skin - Warm/Dry Neurological - Alert & oriented x3 Psychological - Appropriate affect PFSH Medical History (Updated 10/14/24 @ 13:00 by ELDER Goldsmith) Type 2 diabetes mellitus Chronic constipation Osteoporosis Nicotine dependence, cigarettes, uncomplicated Multiple sclerosis Hyperlipidemia Surgical History History of tonsillectomy History of hysterectomy Social History Housing: House Patient Tobacco Use Status: Current someday Tobacco user Tobacco use type: Cigarette Cigarettes Per Day: 10 Years Smoked: (onset 21 for 42 years at 1/2 ppd. 20pyh) e-Cigarette/Vaping Use: Never Used service: No Current occupational status: disabled Cognitive needs: No Hearing needs: No Vision needs: Yes (Reading glasses) Physical exam (Primary Care) Vital Signs: Last Vital Signs Temp 97.6 F 10/14/24 10:19 Pulse 92 10/14/24 10:19 BP 126/78 10/14/24 10:19 Pulse Ox 99 10/14/24 10:19 Oxygen Delivery Method Room Air 10/14/24 10:19 BMI result Body Mass Index 21.1 Tobacco/Smoking Status: Tobacco use Status Tobacco use date assessed 10/14/24 10/14/24 10:15 Patient Tobacco Use Status Current someday Tobacco 10/14/24 10:15 Tobacco use type Cigarette 10/14/24 10:15 e-Cigarette/Vaping Use Never Used 10/14/24 10:21 Coding Level of Care Code New Pt Level 4 (32893) Complex EM visit Add On G2211 Diagnoses Hyperlipidemia E78.5 Chronic constipation K59.09 Osteoporosis M81.0 Multiple sclerosis G35 Type 2 diabetes mellitus E11.9 Assessment & Plan Assessment & Plan (1) Hyperlipidemia: Code(s): E78.5 - Hyperlipidemia, unspecified Category: Medical Plan: Uncontrolled with LDL 179, goal less than 70. Increase atorvastatin to 80 mg daily. May need to consider referral to Cardiology if updated lipid profile remains elevated. Diet low in saturated fat and highly processed foods (2) Chronic constipation: Code(s): K59.09 - Other constipation Category: Medical Plan: Recommend continue with fiber supplements and healthy diet. Possibly related to multiple sclerosis per her neurologist. Continue Dulcolax as needed. Referred to Gastroenterology. Discussed colonoscopy, refuses (3) Osteoporosis: Code(s): M81.0 - Age-related osteoporosis without current pathological fracture Category: Medical Plan: Calcium and vitamin-D advised. Continue weight-bearing exercise. Continue following with Oncology (4) Multiple sclerosis: Code(s): G35 - Multiple sclerosis Category: Medical Plan: Symptoms well managed. Continue Copaxone and follow-up with neurology as scheduled (5) Type 2 diabetes mellitus: Code(s): E11.9 - Type 2 diabetes mellitus without complications Category: Medical Plan: Reviewed last labs, hemoglobin A1c has improved but remains uncontrolled. Continue on metformin. Diabetic diet encouraged. Continue with annual eye exams. Plan Follow-up in the office in 3 months with last completed prior to visit Orders: Orders Lipid Panel 3 Months E11.9 - Type 2 diabetes mellitus without complications, E78.5 - Hyperlipidemia, unspecified Hemoglobin A1c 3 Months E11.9 - Type 2 diabetes mellitus without complications, E78.5 - Hyperlipidemia, unspecified Basic Metabolic Panel 3 Months E11.9 - Type 2 diabetes mellitus without complications, E78.5 - Hyperlipidemia, unspecified Referrals Gastroenterology Referral K59.09 - Other constipation Medications: New atorvastatin (Lipitor) 80 mg PO DAILY 90 tabs 1RF
[2024-10-14 10:19] VITALS: BP 126/78; PULSE 92; TEMP 36.4; O2SAT 99; BMI 21.1
--- OUTSIDE RECORDS SUMMARY | 2024-10-14 11:52 | XMS_ITS | Clinical Summary ---
Author Organization [facility] Address [address] [place] [address] Phone Care Team Providers Care Finisher Special [employer] Name Role Phone Abel Severino MD Primary [...] Insurance CIGNA HMO POS CIGNA HMO POS [facility] HMO POS [facility] HMO POS [place] [address] [place] [address] HMO POS Care Teams Finisher [employer] Relationship Specialty Start Date End Date Abel Severino MD NPI: [id number] [place] [address] [place] [address] PCP - General Emergency Medicine 06/16/14 Additional Source Comments The information contained in this document represents components of the legal health record. It is not the complete legal health record.[facility]
--- OUTSIDE RECORDS SUMMARY | 2024-10-14 11:52 | XMS_ITS | Clinical Summary ---
Author Organization [facility] Address [address] [place] [address] Care Team Providers Care Client Care Manager Name Role Phone Abel Severino MD Primary Care Provider [phone] Allergies Active Allergy Reactions Criticality Noted Date [...] 0 07/20/2023 Active ergocalciferol (VITAMIN D2) capsule 39517 units TAKE 1 CAPSULE BY MOUTH ONE [...] age to complete this topic Care Teams Client Care Manager Relationship Specialty Start Date End Date Abel Severino MD [address] [place] [address] [place] [id number] PCP - General Internal Medicine 07/18/19
== END 2024-10-14 10:50 | disposition home or self-care (01) ==
LOC: HO.HMCHD 10:09
PROVIDERS: PCP Family Medicine; Visit Provider Physician Assistant
DX: E78.5 Hyperlipidemia, unspecified (principal); K59.09 Other constipation; M81.0 Age-related osteoporosis without current pathological fracture; G35 Multiple sclerosis; E11.9 Type 2 diabetes mellitus without complications

== ENCOUNTER → 2024-10-14 10:08 | Outpatient (BNVA) | payer MEDICARE, OTHER, SELFPAY | PROVIDERS: PCP Family Medicine; Visit Provider Physician Assistant | DX: E78.5 Hyperlipidemia, unspecified (principal); K59.09 Other constipation; M81.0 Age-related osteoporosis without current pathological fracture; G35 Multiple sclerosis; E11.9 Type 2 diabetes mellitus without complications; Z79.84 Long term (current) use of oral hypoglycemic drugs; Z79.899 Other long term (current) drug therapy | CPT/HCPCS: 99202 ==

== ENCOUNTER 2024-12-22 13:01 | Outpatient (REF) | payer MEDICARE, OTHER, SELFPAY ==
--- NOTE | ~2024-12-22 | MR_ITS ---
EXAMINATION: MR BRAIN WITHOUT AND WITH CONTRAST CLINICAL INFORMATION: Annually basis to ensure for radiographic stability, history of MS. COMPARISON: October 02, 2023 TECHNIQUE: Multiplanar, multisequence MRI of the brain was obtained before and after the intravenous administration of 6.5 mL gadolinium based (Gadavist) without reported immediate complications.. FINDINGS: Patient's motion artifact. No restricted diffusion. No abnormal enhancement within the intra-axial or the extra-axial compartment of the cranium. Bilateral multifocal patchy and punctate, perpendicularly oriented deep periventricular and deep white matter hyperintense T2 FLAIR signal involving the supratentorial compartment, centrum semiovale and gonzales radiata the most conspicuous in the right parietal white matter. Sellar/suprasellar region demonstrated no signal abnormality or enhancing lesion. Craniocervical junction is intact with normal position of the cerebellar tonsils. Flow-void signal within the main cerebral vessels is normal. No signal abnormality within the infratentorial compartment/brainstem or brachial pontis. MR/MR head/brain wo/w con IMPRESSION: Stable morphology, size and distribution pattern of the nonenhancing supratentorial compartment demyelinating plaques. No acute brain abnormality. Electronically signed by: Lonny Mascorro MD 12/22/2024 02:00 PM [facility]
== END 2024-12-22 13:02 | disposition home or self-care (01) ==
LOC: HO.MRI 13:01
PROVIDERS: PCP Physician Assistant; Visit Provider Student in an Organized Health Care Education/Training Program
DX: Z00.00 Encounter for general adult medical examination without abnormal findings (principal); Z86.69 Personal history of other diseases of the nervous system and sense organs
CPT/HCPCS: 70553; A9585

== ENCOUNTER → 2024-12-22 13:05 | Outpatient (BNV) | payer MEDICARE, OTHER, SELFPAY | PROVIDERS: PCP Physician Assistant; Visit Provider Radiology Diagnostic Radiology | DX: G37.9 Demyelinating disease of central nervous system, unspecified (principal) | CPT/HCPCS: 70553 ==